=== PATIENT | male | born 1985 | race Caucasian/White ===

== ENCOUNTER 2024-02-29 14:03 | Emergency (ER) | payer OTHER ==
[2024-02-29 14:12] VITALS: TEMP 98.6; BMI 25.8
[2024-02-29 15:21] LABS: BASO % 0.8 % (0-2.0); EOS % 0.7 % (0-4.5); MCH 20.5 pg (25.7-33.7); MCHC 30.4 g/dl (32.0-35.9); MEAN CELL VOLUME 67.5 fl (80-96); NEUT % 58.5 % (42.8-82.8); PLATELET COUNT 405 10^3/uL (134-434); WHITE BLOOD COUNT 4.1 K/mm3 (4.0-10.0)
[2024-02-29 17:06] VITALS: BP 120/76; PULSE 72; RESP 15
== END 2024-02-29 17:06 | disposition home or self-care (01) ==
LOC: JER 14:03
DX: D50.0 Iron deficiency anemia secondary to blood loss (chronic) (principal)
CPT/HCPCS: 36415; 82728; 83540; 83550; 85025; 85045; 86850; 86900; 86901; 99283-25